=== PATIENT | male | born 1965 | race Hispanic/Latino ===

== ENCOUNTER → 2018-04-03 | Outpatient (CLI) | payer MEDICARE ==
[~2018-04-03] MED LIST: ASPI-555 PO; ATOR40TA71 PO; CALC667C10 PO; CARV25TA PO; CHOL100046 PO; CLOP75TA14 PO; GABA-531 PO; GLIM2TAB3 PO; LEVE250T2 PO; RANI300T4 PO; ROPI0.5T5 PO; ROPI1TAB11 PO; TRAM50TA4 PO; TRAZ-185 PO
== END | disposition home or self-care (01) ==
LOC: SHCH 08:17
PROVIDERS: ATTEND Internal Medicine Cardiovascular Disease
DX: I34.0 Nonrheumatic mitral (valve) insufficiency (principal)
CPT/HCPCS: 93306